=== PATIENT | female | born 1990 | race American Indian/Alaskan Native ===

== ENCOUNTER 2021-12-23 02:37 | Inpatient (IN) | payer MEDICAID ==
--- NOTE | 2021-12-23 02:52 | Emergency Department Report ---
ED General Adult HPI - General Chief complaint: Abdominal Pain Stated complaint: IN LABOR Source: patient, RN notes reviewed Mode of arrival: Stretcher Limitations: Physical Limitation - History of Present Illness Initial comments: The patient was evaluated in the emergency department for symptoms described in the history of present illness. He/she was evaluated in the context of the global COVID-19 pandemic, which necessitated consideration that the patient might be at risk for infection with the virus that causes COVID-19. Institutional protocols and algorithms that pertain to the evaluation of patients at risk for COVID-19 are in a state of rapid change based on information released by regulatory bodies including the CDC and federal and state organizations. These policies and algorithms were followed during the patient's care in the emergency department. Please note that these policies, procedures and recommendations changed on a rapid basis. This is a 31-year-old female, who reports that she is 3, para 2, typically follows with obstetrics at this hospital, although she does not know the name of her SIZE MARKER, she is scheduled to deliver today, and presented today with a complaint of abdominal cramping, contractions, and possible bleeding. A code stork is called overhead. Patient emergently evaluated by myself and obstetrics team. A sterile cervical exam was performed by [facility] MARKER service, and she is found to be 9 mm dilated. The obstetrics team assumes care, and will deliver the patient's baby. The patient denies additional injuries and complaints. Patient currently protecting airway, moving 4 extremities and hemodynamically stable. -: This morning Radiation: abdomen Quality: aching Consistency: constant Improves with: none Worsens with: none - Related Data Allergies Allergy/AdvReac Type Severity Reaction Status Date / Time Penicillins Allergy Hives Verified 12/23/21 04:15 ED Review of Systems ROS: Stated complaint: IN LABOR Other details as noted in HPI Constitutional: denies: fever Gastrointestinal: abdominal pain Genitourinary: other (Vaginal bleeding) Psychiatric: anxiety ED Physical Exam - General Limitations: Physical Limitation General appearance: alert, anxious, in distress - Head Head exam: Present: atraumatic, normocephalic - Eye Eye exam: Present: normal appearance. Absent: nystagmus - ENT ENT exam: Present: normal exam, normal orophraynx, mucous membranes moist, normal external ear exam - Neck Neck exam: Present: normal inspection, full ROM. Absent: tenderness, meningismus - Respiratory Respiratory exam: Present: normal lung sounds bilaterally. Absent: respiratory distress, wheezes, rales, rhonchi, stridor, decreased breath sounds - Cardiovascular Cardiovascular Exam: Present: regular rate, normal rhythm, normal heart sounds. Absent: bradycardia, tachycardia, irregular rhythm, systolic murmur, diastolic murmur, rubs, gallop - GI/Abdominal GI/Abdominal exam: Present: soft, distended, other (Uterus distended and consistent with date). Absent: tenderness, guarding, rebound, rigid, pulsatile mass - External exam: Present: normal external exam Speculum exam: Present: other (Chaperoned by nurse Susanna Torres). Absent: vagin al bleeding - Extremities Exam Extremities exam: Present: normal inspection, full ROM, other (2+ pulses noted in the bilateral upper and lower extremities. There is no palpable cord. negative Homans sign. Muscular compartments are soft. The pelvis is stable.). Absent: pedal edema, calf tenderness - Back Exam Back exam: Present: normal inspection. Absent: tenderness, CVA tenderness (R), CVA tenderness (L), paraspinal tenderness, vertebral tenderness - Neurological Exam Neurological exam: Present: alert, oriented X3, other (There is no facial droop. The tongue is midline. EOMI. 5 out of 5 strength in 4 extremities). Absent: motor sensory deficit - Psychiatric Psychiatric exam: Present: anxious - Skin Skin exam: Present: warm, dry, intact, normal color. Absent: rash ED Medical Decision Making - Lab Data Vital Signs 12/23/21 12/23/21 12/23/21 02:42 02:55 02:58 Temperature 97.8 F Pulse Rate 87 Blood Pressure O2 Sat by Pulse 100 Oximetry O2 Sat by Pulse 98 Oximetry [ Throughout] 12/23/21 12/23/21 12/23/21 03:03 03:08 03:13 Temperature Pulse Rate 80 77 83 Blood Pressure O2 Sat by Pulse 99 100 98 Oximetry O2 Sat by Pulse Oximetry [ Throughout] 12/23/21 12/23/21 12/23/21 03:18 03:23 03:28 Temperature Pulse Rate 87 86 82 Blood Pressure O2 Sat by Pulse 98 100 98 Oximetry O2 Sat by Pulse Oximetry [ Throughout] 12/23/21 12/23/21 12/23/21 03:33 03:38 03:43 Temperature Pulse Rate 83 81 76 Blood Pressure O2 Sat by Pulse 99 99 100 Oximetry O2 Sat by Pulse Oximetry [ Throughout] 12/23/21 12/23/21 12/23/21 03:48 03:50 03:53 Temperature 98.1 F Pulse Rate 79 83 Blood Pressure O2 Sat by Pulse 97 98 Oximetry O2 Sat by Pulse Oximetry [ Throughout] 12/23/21 12/23/21 12/23/21 03:58 04:01 04:03 Temperature Pulse Rate 80 65 73 Blood Pressure 122/74 O2 Sat by Pulse 99 99 Oximetry O2 Sat by Pulse Oximetry [ Throughout] 12/23/21 12/23/21 12/23/21 04:08 04:13 04:18 Temperature Pulse Rate 72 78 74 Blood Pressure 118/77 O2 Sat by Pulse 99 98 99 Oximetry O2 Sat by Pulse Oximetry [ Throughout] 12/23/21 12/23/21 12/23/21 04:23 04:28 04:33 Temperature Pulse Rate 75 76 77 Blood Pressure O2 Sat by Pulse 98 97 98 Oximetry O2 Sat by Pulse Oximetry [ Throughout] 12/23/21 12/23/21 12/23/21 04:38 04:43 04:48 Temperature Pulse Rate 79 72 76 Blood Pressure O2 Sat by Pulse 98 97 99 Oximetry O2 Sat by Pulse Oximetry [ Throughout] - Medical Decision Making Differential diagnosis, including not limited to: False labor, labor Assessment and plan: 31-year-old female presenting with abdominal pain and contractions. She is found to be 9 mm dilated, with a sterile cervical exam, performed by the obstetrics team, who presented emergently to the emergency room. The obstetrics team has assumed care of the patient, and will deliver the patient's baby. Patient hemodynamically stable, protecting airway and is agreeable to this plan of care. Critical care attestation.: If time is entered above; I have spent that time in minutes in the direct care of this critically ill patient, excluding procedure time. ED Disposition Clinical Impression: Abdominal pain in Qualifiers: Trimester: third trimester Qualified Code(s): O26.893 - Other specified related conditions, third trimester; R10.9 - Unspecified abdominal pain Disposition: 09 ADMITTED INPATIENT Is pt being admited?: Yes Does the pt Need Aspirin: No Condition: Good
[2021-12-23] MEDS ORDERED: CARBOPROST TROMETHAMINE 250 MCG/1 ML INJ IM PRN (03:21)
[2021-12-23] MEDS ORDERED: TERBUTALINE 1 MG/1 ML INJ SUB-Q PRN (03:21)
[2021-12-23] MEDS ORDERED: miSOPROStol 200 MCG TAB PR PRN (03:21)
[2021-12-23] MEDS ORDERED: ePHEDrine SULFATE 50 MG/1 ML INJ IV PRN (03:21)
[2021-12-23] MEDS ORDERED: MINERAL OIL 30 ML ORAL LIQD PO PRN (03:21)
[2021-12-23] MEDS ORDERED: OXYTOCIN 10 UNIT/1 ML INJ IM PRN (03:21)
[2021-12-23] MEDS ORDERED: LOPERAMIDE 2 MG CAP PO PRN (03:21)
[2021-12-23] MEDS ORDERED: METHYLERGONOVINE MALEATE 0.2 MG/ML VIAL IM PRN (03:21)
[2021-12-23] MEDS ORDERED: BUTORPHANOL 2 MG/1 ML INJ IV PRN (03:22)
[2021-12-23] MEDS ORDERED: ACETAMINOPHEN 325 MG TAB PO PRN ×2 (03:22→03:25)
[2021-12-23] MEDS ORDERED: fentaNYL 100 MCG/2 ML INJ IV PRN (03:22)
[2021-12-23] MEDS ORDERED: WITCH HAZEL/ GLYCERIN PAD TP PRN (03:25)
[2021-12-23] MEDS ORDERED: MAGNESIUM HYDROXIDE (MOM) ORAL LIQD UDC PO PRN (03:25)
[2021-12-23] MEDS ORDERED: LANOLIN/ZINC/DIMETHICONE (LANSINOH) 7 GM TP PRN (03:25)
[2021-12-23] MEDS ORDERED: oxyCODONE /ACETAMINOPHEN 5-325MG TAB PO PRN (03:25)
[2021-12-23] MEDS ORDERED: diphenhydrAMINE 25 MG CAP PO PRN (03:25)
[2021-12-23] MEDS ORDERED: PROMETHAZINE 25 MG TAB PO PRN (03:25)
[2021-12-23] MEDS ORDERED: LACTATED RINGERS 1,000 ML IV SCH (03:30)
--- NOTE | 2021-12-23 03:36 | History and Physical Report ---
History of Present Illness Date of examination: 12/23/21 Date of admission: 12/23/21 02:55 Chief complaint: Presented to ED in active labor and transported to L &D History of present illness: Contractions began at zenon 0130 am Past History Past Surgical History: no surgical history Family/Genetic History: none - Obstetrical History Expected Date of Delivery: 12/23/21 Actual Gestation: 40 Week(s) 0 Day(s) : 4 Hx # Term Pregnancies: 2 Number of Living Children: 2 Medications and Allergies Active Meds: Active Medications Acetaminophen (Acetaminophen 325 Mg Tab) 650 mg PO Q4H PRN PRN Reason: Pain, Mild (1-3) Acetaminophen (Acetaminophen 325 Mg Tab) 650 mg PO Q4H PRN PRN Reason: Pain MILD(1-3)/Fever >100.5/HUBABRD Bisacodyl (Bisacodyl 10 Mg Rect Supp) 10 mg KS BID PRN PRN Reason: Constipation Butorphanol Tartrate (Butorphanol 2 Mg/1 Ml Inj) 1 mg IV Q2H PRN PRN Reason: Pain, Moderate(4-6) LABOR PAIN Carboprost Tromethamine (Carboprost Tromethamine 250 Mcg/1 Ml Inj) 250 mcg IM ONCE PRN PRN Reason: Uterine Bleeding Diphenhydramine HCl (Diphenhydramine 25 Mg Cap) 25 mg PO Q6H PRN PRN Reason: Itching Ephedrine Sulfate (Ephedrine Sulfate 50 Mg/1 Ml Inj) 10 mg IV Q2M PRN PRN Reason: Hypotension Fentanyl (Fentanyl 100 Mcg/2 Ml Inj) 100 mcg IV Q2H PRN PRN Reason: Pain,Severe (7-10) LABOR PAIN Lactated Ringer's (Lactated Ringers) 1,000 mls @ 125 mls/hr IV DIRECT DAJA Oxytocin/Sodium Chloride (Pitocin/Ns 30 Unit/500ml) 30 units in 500 mls @ 40 mls/hr IV TITR DAJA; Protocol Ibuprofen (Ibuprofen 800 Mg Tab) 800 mg PO Q6H DAJA Loperamide HCl (Loperamide 2 Mg Cap) 2 mg PO ONCE PRN PRN Reason: give with Hemabate Magnesium Hydroxide (Magnesium Hydroxide (Mom) Oral Liqd Udc) 30 ml PO HS PRN PRN Reason: Constipation Methylergonovine Maleate (Methylergonovine Maleate 0.2 Mg/Ml Vial) 0.2 mg IM ONCE PRN PRN Reason: Uterine Bleeding Mineral Oil (Mineral Oil 30 Ml Oral Liqd) 30 ml PO QHS PRN PRN Reason: Constipation Misoprostol (Misoprostol 200 Mcg Tab) 800 mcg KS ONCE PRN PRN Reason: Uterine Bleeding Multi-Ingredient Ointment (Lanolin/Zinc/Dimethicone (Lansinoh) 7 Gm) 1 applic TP PRN PRN PRN Reason: Sore Nipples Oxycodone/Acetaminophen (Oxycodone /Acetaminophen 5-325mg Tab) 1 tab PO Q6H PRN PRN Reason: Pain, Moderate (4-6) Oxytocin (Oxytocin 10 Unit/1 Ml Inj) 10 unit IM ONCE PRN PRN Reason: Uterine Bleeding Promethazine HCl (Promethazine 25 Mg Tab) 25 mg PO Q6H PRN PRN Reason: Nausea And Vomiting Sodium Chloride (Sodium Chloride 0.9% 10 Ml Flush Syringe) 10 ml IV PRN NR Terbutaline Sulfate (Terbutaline 1 Mg/1 Ml Inj) 0.25 mg SUB-Q ONCE PRN PRN Reason: Hyperstimulation/Hypertonicity Witch Grisel/Glycerin (Witch Grisel/ Glycerin Pad) 1 each TP PRN PRN PRN Reason: Hemorrhoid/cleansing/soothing Review of Systems All systems: negative - Vital Signs Vital signs: Vital Signs Pulse Pulse Ox 87 100 12/23/21 02:58 12/23/21 02:58 Temp Pulse Resp BP Pulse Ox 82 98 12/23/21 03:28 12/23/21 03:28 - Physical Exam Cardiovascular: Regular rate Lungs: Positive: Clear to auscultation Abdomen: Positive: normal appearance Genitourinary (Female): Positive: normal external genitalia Vulva: both: normal Adnexa: both: normal - Obstetrical FHR: category 1 Cervical Dilatation: 10 Cervical Effacement Percentage: 100 station: +2 Uterine Contraction Pattern: Regular Uterine Contraction Intensity: Moderate Results All other labs normal. Assessment and Plan A: Active labor at term P: Expect
--- NOTE | 2021-12-23 03:41 | Procedure Note ---
OB Delivery Note - Delivery Date of Delivery: 12/23/21 Surgeon: JASON BOYKIN Estimated blood loss: 100cc - Vaginal Delivery presentation: vertex Delivery position: OA Delivery induction: none Delivery monitor: none Route of delivery: Delivery placenta: spontaneous Episiotomy: none Delivery laceration: none Anesthesia: none Delivery comments: of a viable male 8# 6 oz on 12/23 @ 0249 over intact perineum. Placenta delivered 3VCI. 7/9. QBL 100cc - A at 1 minute: 7 at 5 minutes: 9 Infant Gender: Male (8# 6 oz)
[2021-12-23] MEDS ORDERED: OXYTOCIN DRIP 30 UNITS/500 ML BAG IV SCH (04:00)
[2021-12-23 05:55] LABS: Hematocrit 38.8 % (30.3-42.9); Hemoglobin 13.1 gm/dl (10.1-14.3); Mean Corpuscular HGB Conc 34 % (30-34); Mean Corpuscular Volume 93 fl (79-97); Platelet Count 145 K/mm3 (140-440); Red Blood Count 4.17 M/mm3 (3.65-5.03); Red Cell Distribution Width 15.3 % (13.2-15.2)
--- NOTE | 2021-12-23 16:31 | Consultation ---
History of Present Illness - Reason for Consult Consult date: 12/23/21 Medical management Requesting physician: HOSEA SÁNCHEZ - History of Present Illness 31 YO Female S/P . Consult Placed by Dr. Sánchez for medical manaagement. Patient reports "I stepped on a nail". Patient states that she was ambulating in her backyard several days ago and stepped on a board and inadvertently stepped on a nail that was lodged in the board. Patient states that she removed the nail and blood from her foot and proceeded to the emergency department for evaluation. Patient states that the wound was washed out and she was discharged home. Patient states that she has experienced tenderness to her right foot over the past several days. Patient seen and evaluated in her room. Patient denies fever, chills, chest pain, palpitation, productive cough, skin rash, recent co ntact, no exposure to COVID-19. No reported nursing events. Past History Past Medical History: No medical history, other (Reviewed) Past Surgical History: No surgical history, Other (Reviewed) Social history: single. denies: smoking, alcohol abuse, prescription drug abuse Family history: hypertension Medications and Allergies Allergies Allergy/AdvReac Type Severity Reaction Status Date / Time Penicillins Allergy Hives Verified 12/23/21 04:15 Active Meds: Active Medications Acetaminophen (Acetaminophen 325 Mg Tab) 650 mg PO Q4H PRN PRN Reason: Pain MILD(1-3)/Fever >100.5/HUBBARD Diphenhydramine HCl (Diphenhydramine 25 Mg Cap) 25 mg PO Q6H PRN PRN Reason: Itching Clindamycin HCl (Cleocin 300 Mg/50 Ml) 300 mg in 50 mls @ 100 mls/hr IV Q6H DAJA; Protocol Ibuprofen (Ibuprofen 800 Mg Tab) 800 mg PO Q6HR DAJA Magnesium Hydroxide (Magnesium Hydroxide (Mom) Oral Liqd Udc) 30 ml PO HS PRN PRN Reason: Constipation Multi-Ingredient Ointment (Lanolin/Zinc/Dimethicone (Lansinoh) 7 Gm) 1 applic TP PRN PRN PRN Reason: Sore Nipples Oxycodone/Acetaminophen (Oxycodone /Acetaminophen 5-325mg Tab) 1 tab PO Q6H PRN PRN Reason: Pain, Moderate (4-6) Promethazine HCl (Promethazine 25 Mg Tab) 25 mg PO Q6H PRN PRN Reason: Nausea And Vomiting Sodium Chloride (Sodium Chloride 0.9% 10 Ml Flush Syringe) 10 ml IV PRN NR Stop: 12/24/21 03:59 Witch Grisel/Glycerin (Witch Grisel/ Glycerin Pad) 1 each TP PRN PRN PRN Reason: Hemorrhoid/cleansing/soothing Review of Systems Constitutional: no weight loss, no fever, no chills Ears, nose, mouth and throat: no ear pain, no ear discharge, no tinnitis, no nose pain, no nasal discharge Cardiovascular: no chest pain, no orthopnea, no palpitations, no rapid/irregular heart beat, no edema, no syncope Respiratory: no cough, no cough with sputum, no hemoptysis, no shortness of breath, no dyspnea on exertion Gastrointestinal: no abdominal pain, no vomiting, no constipation Genitourinary Female: no pelvic pain, no flank pain, no dysuria, no urinary frequency, no urgency Rectal: no pain, no incontinence, no bleeding Musculoskeletal: other (Right foot pain), no neck pain, no shooting arm pain, no low back pain Integumentary: redness (Right foot) Neurological: no head injury, no paralysis, no parathesias, no numbness, no tingling, no seizures, no tremors Psychiatric: no anxiety, no memory loss, no sleep disturbances, no insomnia, no change in libido, no disorientation, no hallucinations Endocrine: no cold intolerance, no heat intolerance, no excessive thirst, no polydipsia, no excessive sweating Hematologic/Lymphatic: no easy bruising, no easy bleeding, no lymphadenopathy Allergic/Immunologic: no allergic rhinitis Exam - Constitutional Vitals: Temp Pulse Resp BP Pulse Ox 98.2 F 91 H 16 126/61 98 12/23/21 11:50 12/23/21 11:50 12/23/21 11:50 12/23/21 11:50 12/23/21 11:50 General appearance: Present: mild distress - EENT Eyes: Present: PERRL ENT: hearing intact, clear oral mucosa - Neck Neck: Present: supple, normal ROM - Respiratory Respiratory effort: normal Respiratory: bilateral: CTA - Cardiovascular Heart Sounds: Present: S1 & S2. Absent: rub, click - Extremities Extremities: pulses symmetrical, No edema Extremity abnormal: edema, erythema, other (Right foot with healed punctum to p lantar surface of the right foot) Peripheral Pulses: within normal limits - Abdominal General gastrointestinal: Present: soft, non-tender, non-distended, normal bowel sounds Female genitourinary: Present: normal - Integumentary Integumentary: Present: clear, warm, dry - Musculoskeletal Musculoskeletal: gait normal, strength equal bilaterally - Psychiatric Psychiatric: appropriate mood/affect, intact judgment & insight - Neurologic Neurologic: CNII-XII intact, moves all extremities Results - Labs CBC & Chem 7: 12/23/21 05:16 Labs: Abnormal lab results 12/23/21 Range/Units 05:16 RDW 15.3 H (13.2-15.2) % Assessment and Plan - Patient Problems (1) Puncture wound of plantar aspect of right foot with infection Current Visit: Yes Status: Acute Qualifiers: Encounter type: initial encounter Qualified Code(s): S91.331A - Puncture wound without foreign body, right foot, initial encounter; L08.9 - Local infection of the skin and subcutaneous tissue, unspecified Plan to address problem: X-ray right foot to evaluate for retained foreign body and soft tissue area, IV antibiotic therapy, supportive care. Pain control. (2) Cellulitis of right foot Current Visit: Yes Status: Acute Plan to address problem: CBC, IV antibiotic therapy, supportive care, pain control, NSAID therapy.
--- NOTE | 2021-12-23 18:02 | XRay Report ---
RIGHT FOOT 3 VIEW(S) INDICATION / CLINICAL INFORMATION: right foot cellulitis COMPARISON: None available. FINDINGS: BONES / JOINT(S): No acute fracture or subluxation. No significant arthritis. No osseous destruction. SOFT TISSUES: Mild soft tissue swelling of the forefoot. No soft tissue gas. ADDITIONAL FINDINGS: None. IMPRESSION: 1. Soft tissue swelling but no soft tissue gas or radiographic evidence for osteomyelitis. Signer Name: Fozia Currie MD Signed: 12/23/2021 5:58 PM Workstation Name: [id number]
[2021-12-23] MEDS: IBUPROFEN 800 MG TAB PO SCH (20:46)
[2021-12-23] MEDS: CLINDAMYCIN 300 MG/50 mL 300 MG/50 ML BAG IV SCH (20:46)
[2021-12-24] MEDS: CLINDAMYCIN 300 MG/50 mL 300 MG/50 ML BAG IV SCH ×2 (03:15→10:00)
--- NOTE | 2021-12-24 06:46 | Progress Note ---
Assessment and Plan PPD#1 with right foot cellulitis 1. Appreciate hospitalist team and will continue this tx as recommended 2. Routine cared Subjective Date of service: 12/24/21 Principal diagnosis: PPD#1 and right foot with cellulitis Interval history: pt has no complaints and state the right foot. Pt is breast feeding Objective - Constitutional Vitals: Vital Signs - 12hr 12/23/21 12/24/21 20:30 01:32 Temperature 97.8 F Pulse Rate 72 Respiratory 20 Rate Blood Pressure 116/71 O2 Sat by Pulse 96 Oximetry O2 Sat by Pulse 98 Oximetry [ Throughout] General appearance: Present: no acute distress - Neck Neck: normal ROM - Respiratory Respiratory effort: normal - Breasts Breasts: deferred Extremity abnormal: other (right foot with erythema and less warmth compared to yesterday) - Genitourinary Female genitourinary: other (Fundus firm below the umbilicus; lochia small) - Neurologic Neurologic: moves all extremities - Psychiatric Psychiatric: cooperative - Labs CBC & Chem 7: 12/23/21 05:16 Medications & Allergies - Medications Allergies/Adverse Reactions: Allergies Penicillins Allergy (Verified 12/23/21 04:15) Hives Active Medications: Generic Name Dose Route Start Last Admin Trade Name Freq PRN Reason Stop Dose Admin Acetaminophen 650 mg 12/23/21 03:25 Acetaminophen 325 Mg Tab PO Q4H PRN Pain MILD(1-3)/Fever >100.5/HUBBARD Diphenhydramine HCl 25 mg 12/23/21 03:25 Diphenhydramine 25 Mg Cap PO Q6H PRN Itching Clindamycin HCl 300 mg in 50 mls @ 100 mls/hr 12/23/21 17:00 12/24/21 03:15 Cleocin 300 Mg/50 Ml IV 100 mls/hr Q6H DAJA Administration Protocol Ibuprofen 800 mg 12/23/21 05:00 12/23/21 20:46 Ibuprofen 800 Mg Tab PO 800 mg Q6HR DAJA Administration Magnesium Hydroxide 30 ml 12/23/21 03:25 Magnesium Hydroxide (Mom) Oral Liqd Udc PO HS PRN Constipation Multi-Ingredient Ointment 1 applic 12/23/21 03:25 Lanolin/Zinc/Dimethicone (Lansinoh) 7 Gm TP PRN PRN Sore Nipples Oxycodone/Acetaminophen 1 tab 12/23/21 03:25 Oxycodone /Acetaminophen 5-325mg Tab PO Q6H PRN Pain, Moderate (4-6) Promethazine HCl 25 mg 12/23/21 03:25 Promethazine 25 Mg Tab PO Q6H PRN Nausea And Vomiting Witch Grisel/Glycerin 1 each 12/23/21 03:25 Witch Grisel/ Glycerin Pad TP PRN PRN Hemorrhoid/cleansing/soothing
[2021-12-24] MEDS ORDERED: SODIUM CHLORIDE 0.9% 250ML 0 ML ONE (10:20)
[2021-12-24] MEDS: IBUPROFEN 800 MG TAB PO SCH ×2 (10:30→18:09)
--- NOTE | 2021-12-24 14:20 | Progress Note ---
Assessment and Plan (1) Puncture wound of plantar aspect of right foot with infection Current Visit: Yes Status: Acute Qualifiers: Encounter type: initial encounter Qualified Code(s): S91.331A - Puncture wound without foreign body, right foot, initial encounter; L08.9 - Local infection of the skin and subcutaneous tissue, unspecified Plan to address problem: X-ray right foot showed no retained foreign body or sign of abscess or osteomyelitis Patient refusing to take iv antibiotics Will change IV clindamycin to p.o., supportive care. Pain control. (2) Cellulitis of right foot Current Visit: Yes Status: Acute Plan to address problem: Monitor CBC, IV antibiotic therapy, supportive care, pain control, NSAID therapy. Subjective Date of service: 12/24/21 Principal diagnosis: PPD#1 and right foot with cellulitis Interval history: Patient seen and examined. Medical records and medication list reviewed. No acute event overnight noted by the RN. Patient denies any chest pain or difficulty breathing. Patient is tolerating diet. Right foot swelling significantly improved Discussed plan of care at bedside with patient. Objective - Exam Narrative Exam: GENERAL: well-developed and well-nourished -German female lying on bed appeared to be in no discomfort. HEENT: Normocephalic. Atraumatic. No conjunctival congestion or icterus. Patient has moist mucous membranes. NECK: Supple. Trachea midline. CHEST/LUNGS: Clear to auscultated bilaterally, breathing nonlabored. No wheezes crackles or rhonchi. HEART/CARDIOVASCULAR: Regular in rate and rhythm. S1 and S2 positive. ABDOMEN: Abdomen is soft, nontender. Patient has normal bowel sounds. SKIN: There is no rash. Warm and dry. NEURO: No focal motor deficit. Follows command. MUSCULOSKELETAL: No joint effusion or tenderness. EXTRIMITY: No edema, no cyanosis or clubbing. PSYCH: Cooperative. - Constitutional Vitals: Vital Signs - 12hr 12/24/21 12/24/21 08:39 10:00 Temperature 97.6 F Pulse Rate 74 Respiratory 18 Rate Blood Pressure 107/72 O2 Sat by Pulse 96 Oximetry O2 Sat by Pulse 98 Oximetry [ Throughout] - Labs CBC & Chem 7: 12/23/21 05:16
[2021-12-24] MEDS ORDERED: CLINDAMYCIN IM SCH (18:00)
[2021-12-24] MEDS ORDERED: WATER IM SCH (18:00)
[2021-12-24] MEDS ORDERED: DEXTROSE 5% IM SCH (18:00)
[2021-12-24] MEDS: CLINDAMYCIN 300 MG CAP PO SCH (18:10)
[2021-12-25] MEDS: IBUPROFEN 800 MG TAB PO SCH ×3 (02:38→10:31)
[2021-12-25] MEDS: CLINDAMYCIN 300 MG CAP PO SCH ×2 (08:12→14:14)
--- NOTE | 2021-12-25 11:22 | Discharge Summary ---
Providers - Providers Date of Admission: 12/23/21 02:55 Date of discharge: 12/25/21 Attending physician: HOSEA Gregorio MD 12/23/21 16:16 Consult to Physician [CONS] Routine Comment: Consulting Provider: NICK BAILEY Physician Instructions: Reason For Exam: right foot redness? cellulitis after nail injury Primary care physician: HOSEA SÁNCHEZ Hospitalization Reason for admission: active labor Delivery: Episiotomy: none Laceration: none Discharge diagnosis: IUP at term delivered baby: male Condition at discharge: Good Disposition: HOME / SELF CARE / HOMELESS Plan - Discharge Medications Prescriptions: Ibuprofen [Motrin 800 MG tab] 800 mg PO Q8HR #30 tablet - Provider Discharge Summary Activity: routine Diet: routine Instructions: routine Additional instructions: [] Smoking cessation referral if applicable(refer to patient education folder for contact #) [] Refer to [facility]'s [facility] Booklet Call your doctor immediately for: * Fever > 100.5 * Heavy vaginal bleeding ( >1 pad per hour) * Severe persistent headache * Shortness of breath * Reddened, hot, painful area to leg or breast * Drainage or odor from incision. * Keep incision clean and dry at all times and follow doctor's instructions regarding bathing/showering - Follow up plan Follow up: HOSEA SÁNCHEZ MD [Primary Care Provider] - 6 Weeks
[2021-12-25 12:06] LABS: Blood Urea Nitrogen 9 mg/dL (7-17); Calcium 8.1 mg/dL (8.4-10.2); Hemolysis Index 4
[2021-12-25 12:16] LABS: BUN/Creatinine Ratio 23
[2021-12-25 13:55] VITALS: BP 117/70
--- NOTE | 2021-12-25 15:49 | Progress Note ---
Assessment and Plan (1) Puncture wound of plantar aspect of right foot with infection Current Visit: Yes Status: Acute Qualifiers: Encounter type: initial encounter Qualified Code(s): S91.331A - Puncture wound without foreign body, right foot, initial encounter; L08.9 - Local infection of the skin and subcutaneous tissue, unspecified Plan to address problem: X-ray right foot showed no retained foreign body or sign of abscess or osteomyelitis Patient refusing to take iv antibiotics changed IV clindamycin to p.o., supportive care. Pain control. (2) Cellulitis of right foot Current Visit: Yes Status: Acute Plan to address problem: Monitor CBC, IV antibiotic therapy, supportive care, pain control, NSAID therapy. --plan for dc today Subjective Date of service: 12/25/21 Principal diagnosis: PPD#1 and right foot with cellulitis Interval history: Patient seen and examined. Medical records and medication list reviewed. No acute event overnight noted by the RN. Patient denies any chest pain or difficulty breathing. Patient is tolerating diet. Right foot swelling significantly improved Discussed plan of care at bedside with patient. Objective - Exam Narrative Exam: GENERAL: well-developed and well-nourished -[place] female lying on bed appeared to be in no discomfort. HEENT: Normocephalic. Atraumatic. No conjunctival congestion or icterus. Patient has moist mucous membranes. NECK: Supple. Trachea midline. CHEST/LUNGS: Clear to auscultated bilaterally, breathing nonlabored. No wheezes crackles or rhonchi. HEART/CARDIOVASCULAR: Regular in rate and rhythm. S1 and S2 positive. ABDOMEN: Abdomen is soft, nontender. Patient has normal bowel sounds. SKIN: There is no rash. Warm and dry. NEURO: No focal motor deficit. Follows command. MUSCULOSKELETAL: No joint effusion or tenderness. EXTRIMITY: No edema, no cyanosis or clubbing. PSYCH: Cooperative. - Constitutional Vitals: Vital Signs - 12hr 12/25/21 12/25/21 12/25/21 08:05 08:40 10:31 Temperature 99.4 F Pulse Rate 79 Respiratory 20 16 Rate Blood Pressure 108/70 [Left] O2 Sat by Pulse 99 Oximetry O2 Sat by Pulse 100 Oximetry [ Throughout] 12/25/21 13:53 Temperature 98 F Pulse Rate 60 Respiratory 20 Rate Blood Pressure 117/70 [Left] O2 Sat by Pulse 99 Oximetry O2 Sat by Pulse Oximetry [ Throughout] - Labs CBC & Chem 7: 12/23/21 05:16 12/25/21 11:19 Labs: Abnormal lab results 12/25/21 Range/Units 11:19 Creatinine 0.4 L (0.6-1.2) mg/dL Calcium 8.1 L (8.4-10.2) mg/dL
== END 2021-12-25 15:05 | disposition home or self-care (01) | DRG 774 ==
LOC: EDSTATUS 02:47 → LD 02:55 → OB 09:16
PROVIDERS: ADMIT Obstetrics & Gynecology; ATTEND Obstetrics & Gynecology
PROC: 10E0XZZ Delivery of Products of Conception, External Approach (ICD-10-PCS; principal; 2021-12-23)
DX: O99.344 Other mental disorders complicating childbirth (principal); O75.3 Other infection during labor; Z3A.40 40 weeks gestation of pregnancy; Z37.0 Single live birth; F41.9 Anxiety disorder, unspecified; Z88.0 Allergy status to penicillin; L03.115 Cellulitis of right lower limb; S91.331A Puncture wound without foreign body, right foot, initial encounter; L08.9 Local infection of the skin and subcutaneous tissue, unspecified
CPT/HCPCS: 36415; 80048; 85027; 86850; 86900; 86901; 87040; G0378; J3490; U0003